=== PATIENT | male | born 1995 | race Caucasian/White ===

== ENCOUNTER 2017-08-06 08:34 | Emergency (ER) | payer MEDICAID, OTHER ==
[2017-08-06 08:44] VITALS: BP 140/75
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
--- NOTE | 2017-08-06 09:47 | XRAY Preliminary Report ---
Exam: XR Wrist 4 View RT IMPRESSION: No fracture or dislocation [facility] SITE ID: [id number]
--- NOTE | 2017-08-06 09:50 | XRAY Report ---
EXAM: RIGHT WRIST RADIOGRAPHY EXAM DATE: 08/06/2017 09:17 AM. CLINICAL HISTORY: Injury fall. COMPARISON: None. TECHNIQUE: 4 views. FINDINGS: Bones: Normal. No fractures or bone lesions. Joints: Normal. No subluxations. Soft Tissues: Normal. No soft tissue swelling. IMPRESSION: No fracture or dislocation [facility] Referring Provider Line: [phone] SITE ID: [id number]
== END 2017-08-06 10:00 | disposition home or self-care (01) ==
LOC: ED 08:34
DX: S63.501A Unspecified sprain of right wrist, initial encounter (principal); S60.512A Abrasion of left hand, initial encounter; V18.4XXA Pedal cycle driver injured in noncollision transport accident in traffic accident, initial encounter; Y93.55 Activity, bike riding; Y92.488 Other paved roadways as the place of occurrence of the external cause; J45.909 Unspecified asthma, uncomplicated; K21.9 Gastro-esophageal reflux disease without esophagitis
CPT/HCPCS: 29125; 99283

== ENCOUNTER 2018-03-07 20:07 | Emergency (ER) | payer MEDICAID ==
[2018-03-07 20:11] VITALS: BP 143/83
[2018-03-07] MEDS ORDERED: IPRATROPIUM/ALBUTEROL 3 ML NEB INH STA (20:14)
[2018-03-07] MEDS ORDERED: predniSONE 20 MG TABLET PO STA (20:15)
--- NOTE | 2018-03-07 20:26 | ED Physician Documentation ---
PD HPI DYSPNEA - Stated complaint Stated Complaint: SOA - Chief complaint Chief Complaint: Resp - History obtained from History obtained from: Patient - History of Present Illness Timing - onset: Yesterday Timing - details: Gradual onset, Still present Inciting event(s): Out of meds, Exposure (ie smoke) Improved by: O2 Associated symptoms: Wheezing. No: Fever, Cough Similar symptoms before: Work up / diagnostics, Treatment Recently seen: Not recently seen - Additional information Additional information: Patient is a 22 year old male with a history of asthma presenting to the emergency department for shortness of breath. Patient states that he was mowing the grass yesterday and developed mild wheezing. Patient states that it got progressively worse and he did not have an inhaler so he came to the emergency department. Review of Systems Ten Systems: 10 systems reviewed and negative Constitutional: denies: Fever, Chills Respiratory: reports: Dyspnea, Cough, Wheezing Neurologic: reports: Headache PD PAST MEDICAL HISTORY - Past Medical History Past Medical History: Yes Respiratory: Asthma GI: GERD - Past Surgical History Past Surgical History: No - Present Medications Home Medications: Ambulatory Orders Medication Instructions Recorded Confirmed Albuterol Sulfate 1.25 mg IH PRN 09/09/13 09/09/13 Albuterol [Proventil Hfa] 1 puffs INH Q4-6H PRN 09/09/13 09/09/13 Omeprazole Magnesium [Prilosec Otc] 20 mg PO PRN 09/09/13 09/09/13 Ibuprofen [Motrin] 800 mg PO Q8H PRN #30 tablet 09/15/13 Albuterol Sulf [Ventolin Hfa 2 puffs INH Q4HR PRN #1 inhaler 03/07/18 Inhaler] predniSONE [Prednisone] 40 mg PO DAILY 5 Days tablet 03/07/18 - Allergies Allergies/Adverse Reactions: Allergies Allergy/AdvReac Type Severity Reaction Status Date / Time No Known Drug Allergies Allergy Verified 03/07/18 20:11 - Social History Does the pt smoke?: No Smoking Status: Never smoker Does the pt drink ETOH?: No Does the pt have substance abuse?: Yes - Immunizations Immunizations are current?: Yes - POLST Patient has POLST: No PD ED PE NORMAL - Vitals Vital signs reviewed: Yes - General General: Alert and oriented X 3 - HEENT HEENT: Atraumatic - Cardiac Cardiac: RRR - Abdomen Abdomen: Non distended - Derm Derm: Normal color, Warm and dry, No rash - Extremities Extremities: No deformity, No edema - Neuro Neuro: Alert and oriented X 3, No motor deficit, Normal speech - Psych Psych: Normal mood PD ED PE EXPANDED - Respiratory Respiratory: Labored, Wheezing, Right upper lobe, Right middle lobe, Right lower lobe, Left upper lobe, Left lower lobe Results - Vitals Vitals: Vital Signs - 24 hr 03/07/18 03/07/18 20:09 20:23 Temperature 36.6 C Heart Rate 97 88 Respiratory 16 20 Rate Blood Pressure 143/83 H O2 Saturation 97 Oxygen O2 Source Room air PD MEDICAL DECISION MAKING - ED course Complexity details: reviewed old records, reviewed results, re-evaluated patient , considered differential, d/w patient ED course: patient was seen and examined at bedside. Patient was treated with two duonebs and 60mg of prednisone. Patient responded well to the therapy. Patient stated that he felt much better and wanted to go home. Patient was educated on using a spacer. prescriptions were written and patient was stable for discharge with outpatient follow up. Departure - Departure Disposition: 01 Home, Self Care Clinical Impression: Asthma Condition: Good Instructions: Asthma Dc Follow-Up: primary,care provider [Other] - Within 3 Days Prescriptions: Albuterol Sulf [Ventolin Hfa Inhaler] 2 puffs INH Q4HR PRN #1 inhaler PRN Reason: Wheezing predniSONE [Prednisone] 40 mg PO DAILY 5 Days tablet Comments: Your symptoms today are being caused by an asthma exacerbation. You will be on steroids for the next 5 days, and you can use your inhaler up to every two hours as needed. You should return for worsening symptoms.
[2018-03-07] MEDS ORDERED: IPRATROPIUM/ALBUTEROL 3 ML NEB INH ONE (20:31)
== END 2018-03-07 20:46 | disposition home or self-care (01) ==
LOC: ED 20:07
DX: J45.909 Unspecified asthma, uncomplicated (principal); K21.9 Gastro-esophageal reflux disease without esophagitis
CPT/HCPCS: 94640; 94664; 99283; 99284; J7512

== ENCOUNTER 2018-03-12 05:26 | Emergency (ER) | payer MEDICAID ==
[2018-03-12] MEDS ORDERED: ALBUTEROL NEB 2.5 MG/3 ML INH STA (05:43)
[2018-03-12] MEDS ORDERED: CETIRIZINE 10 MG TABLET PO STA (05:43)
--- NOTE | 2018-03-12 05:57 | ED Physician Documentation ---
PD HPI URI - Stated complaint Stated Complaint: COUGH,THROAT PX - Chief complaint Chief Complaint: Heent - History obtained from History obtained from: Patient - History of Present Illness Timing details: Gradual onset Pain level max: 5 Pain level now: 4 Associated symptoms: Nasal congestion, Rhinorrhea, Sore throat, Dyspnea ( wheezing). No: Fever, Chills - Additional information Additional information: Patient is a 22-year-old male who presents to the emergency department what appears to be a viral upper respiratory infection. States he has been sick for the past 5-6 days. Start the sore throat again yesterday. Positive rhinorrhea and congestion. Has not taken anything for this. Is still on steroids and albuterol for his asthma. No fevers. Cough is productive of yellow/green sputum Review of Systems Constitutional: denies: Fever, Chills Ears: denies: Ear pain Nose: reports: Rhinorrhea / runny nose, Congestion Throat: reports: Sore throat Respiratory: reports: Wheezing GI: denies: Nausea, Vomiting, Diarrhea : denies: Dysuria, Frequency, Hesitancy Musculoskeletal: denies: Neck pain, Back pain Neurologic: denies: Headache PD PAST MEDICAL HISTORY - Past Medical History Past Medical History: Yes Respiratory: Asthma GI: GERD - Past Surgical History Past Surgical History: No - Present Medications Home Medications: Ambulatory Orders Medication Instructions Recorded Confirmed Albuterol Sulfate 1.25 mg IH PRN 09/09/13 09/09/13 Albuterol [Proventil Hfa] 1 puffs INH Q4-6H PRN 09/09/13 09/09/13 Omeprazole Magnesium [Prilosec Otc] 20 mg PO PRN 09/09/13 09/09/13 Ibuprofen [Motrin] 800 mg PO Q8H PRN #30 tablet 09/15/13 Albuterol Sulf [Ventolin Hfa 2 puffs INH Q4HR PRN #1 inhaler 03/07/18 Inhaler] predniSONE [Prednisone] 40 mg PO DAILY 5 Days tablet 03/07/18 Cetirizine HCl/Pseudoephedrine 1 each PO BID PRN #30 tab.er.12h 03/12/18 [Zyrtec-D Tablet] Ibuprofen [Motrin] 800 mg PO Q8H PRN #30 tablet 03/12/18 - Allergies Allergies/Adverse Reactions: Allergies Allergy/AdvReac Type Severity Reaction Status Date / Time No Known Drug Allergies Allergy Verified 03/12/18 05:34 - Social History Does the pt smoke?: No Smoking Status: Never smoker Does the pt drink ETOH?: No Does the pt have substance abuse?: Yes - Immunizations Immunizations are current?: Yes - POLST Patient has POLST: No PD ED PE NORMAL - Vitals Vital signs reviewed: Yes - General General: Alert and oriented X 3, No acute distress - HEENT HEENT: Ears normal, Moist mucous membranes, Other (Mild posterior oropharyngeal erythema without tonsillar exudates. Uvula midline. Posterior cobblestoning present) - Neck Neck: Supple, no meningeal sign, No adenopathy - Cardiac Cardiac: RRR - Respiratory Respiratory: No respiratory distress, Clear bilaterally - Abdomen Abdomen: Soft, Non tender, Non distended - Derm Derm: Warm and dry - Neuro Neuro: Alert and oriented X 3 - Psych Psych: Normal mood, Normal affect Results - Vitals Vitals: Vital Signs - 24 hr 03/12/18 03/12/18 05:30 05:58 Temperature 36.6 C Heart Rate 67 68 Respiratory 18 18 Rate Blood Pressure 156/98 H O2 Saturation 98 Oxygen O2 Source Room air - Labs Labs: Laboratory Tests 03/12/18 05:40 Group A Strep Rapid Negative PD MEDICAL DECISION MAKING - ED course Complexity details: reviewed old records, reviewed results, re-evaluated patient , considered differential, d/w patient ED course: Patient is a 22-year-old male who presents to the emergency department with what appears to be a viral upper respiratory infection. Will place on decongestants in addition to his albuterol inhaler and steroids. We will have him continue the steroids. Given a nebulizer treatment here and breathing improved. Patient is well-appearing, nontoxic. No hypoxia. Tolerating p.o. without difficulty. Well-hydrated. Patient counseled regarding signs and symptoms for which I believe and urgent re-evaluation would be necessary. Patient with good understanding of and agreement to plan and is comfortable going home at this time This document was made in part using voice recognition software. While efforts are made to proofread this document, sound alike and grammatical errors may occur. Departure - Departure Disposition: 01 Home, Self Care Clinical Impression: Viral URI, Viral pharyngitis Condition: Good Instructions: ED Pharyngitis Viral, ED Viral Syndrome Follow-Up: your,doctor in 1 week if not better [Other] Prescriptions: Cetirizine HCl/Pseudoephedrine [Zyrtec-D Tablet] 1 each PO BID PRN #30 tab.er.12h PRN Reason: Nasal Congestion Ibuprofen [Motrin] 800 mg PO Q8H PRN #30 tablet PRN Reason: PAIN &/OR FEVER Comments: Return if you worsen. Drink plenty of fluids. Your rapid strep is negative today. Continue your other medications as previously prescribed
[2018-03-12 06:20] VITALS: BP 138/84
== END 2018-03-12 06:15 | disposition home or self-care (01) ==
LOC: ED 05:26
DX: J02.8 Acute pharyngitis due to other specified organisms (principal); J06.9 Acute upper respiratory infection, unspecified; B97.89 Other viral agents as the cause of diseases classified elsewhere
CPT/HCPCS: 87070; 87430; 94640; 99283; A9270

== ENCOUNTER 2018-04-04 02:04 | Emergency (ER) | payer MEDICAID ==
[2018-04-04] MEDS ORDERED: IPRATROPIUM/ALBUTEROL 3 ML NEB INH STA (02:15)
[2018-04-04] MEDS ORDERED: ALBUTEROL NEB 2.5 MG/3 ML INH ONE (02:33)
[2018-04-04] MEDS ORDERED: ALBUTEROL NEB 2.5 MG/3 ML INH STA (02:38)
[2018-04-04] MEDS ORDERED: predniSONE 20 MG TABLET PO STA (02:38)
--- NOTE | 2018-04-04 02:41 | ED Physician Documentation ---
PD HPI DYSPNEA - Stated complaint Stated Complaint: SHORTNESS OF BREATH - Chief complaint Chief Complaint: Resp - History obtained from History obtained from: Patient - History of Present Illness Timing - onset: Today Timing - details: Gradual onset, Still present Inciting event(s): Out of meds, Exposure (ie smoke) Worsened by: Exertion, Coughing, Allergens Similar symptoms before: Work up / diagnostics, Treatment Recently seen: Emergency Dept - Additional information Additional information: Patient is a 22 year old male with a history of asthma, non compliant with medications who is presenting to the emergency department for shortness of breath. Patient states that he was pulling a car out of a bunch of weeds and trees and it gave him shortness of breath. patient does not have an inhaler at this time so he came to the emergency department. Review of Systems Constitutional: denies: Fever Respiratory: reports: Dyspnea, Cough, Wheezing PD PAST MEDICAL HISTORY - Past Medical History Past Medical History: Yes Respiratory: Asthma GI: GERD - Past Surgical History Past Surgical History: No - Present Medications Home Medications: Ambulatory Orders Medication Instructions Recorded Confirmed Albuterol Sulfate 1.25 mg IH PRN 09/09/13 09/09/13 Albuterol [Proventil Hfa] 1 puffs INH Q4-6H PRN 09/09/13 09/09/13 Omeprazole Magnesium [Prilosec Otc] 20 mg PO PRN 09/09/13 09/09/13 Ibuprofen [Motrin] 800 mg PO Q8H PRN #30 tablet 09/15/13 Albuterol Sulf [Ventolin Hfa 2 puffs INH Q4HR PRN #1 inhaler 03/07/18 Inhaler] predniSONE [Prednisone] 40 mg PO DAILY 5 Days tablet 03/07/18 Cetirizine HCl/Pseudoephedrine 1 each PO BID PRN #30 tab.er.12h 03/12/18 [Zyrtec-D Tablet] Ibuprofen [Motrin] 800 mg PO Q8H PRN #30 tablet 03/12/18 Albuterol Sulfate [Proventil Hfa 1 - 2 puffs INH Q4H PRN #1 inhaler 04/04/18 Inhaler] Cetirizine HCl 10 mg PO DAILY #20 tablet 04/04/18 predniSONE [Prednisone] 40 mg PO DAILY 5 Days tablet 04/04/18 - Allergies Allergies/Adverse Reactions: Allergies Allergy/AdvReac Type Severity Reaction Status Date / Time No Known Drug Allergies Allergy Verified 03/12/18 05:34 - Social History Does the pt smoke?: No Smoking Status: Never smoker Does the pt drink ETOH?: No Does the pt have substance abuse?: Yes - Immunizations Immunizations are current?: Yes - POLST Patient has POLST: No PD ED PE NORMAL - Vitals Vital signs reviewed: Yes - General General: Alert and oriented X 3 - HEENT HEENT: Atraumatic - Cardiac Cardiac: RRR - Abdomen Abdomen: Soft - Derm Derm: Normal color - Extremities Extremities: No deformity - Neuro Neuro: Alert and oriented X 3 Eye Opening: Spontaneous PD ED PE EXPANDED - Respiratory Respiratory: Labored, Accessory mm use, Retractions, Wheezing, Right upper lobe , Right middle lobe, Right lower lobe, Left upper lobe, Left lower lobe Results - Vitals Vitals: Vital Signs - 24 hr 04/04/18 04/04/18 04/04/18 02:05 02:27 02:57 Temperature 36.0 C L Heart Rate 112 H 113 H 110 H Respiratory 21 20 16 Rate Blood Pressure 142/98 H 125/92 H O2 Saturation 94 96 Oxygen O2 Source Room air PD MEDICAL DECISION MAKING - ED course Complexity details: reviewed old records, reviewed results, re-evaluated patient , considered differential, d/w patient ED course: Patient was seen and examined at bedside. patient was treated with prednisone, duo nebs and two albuterol treatments. Patient responded well to the therapy and his lungs opened up. Patient would have benefited from further treatments but he said that he had to go home, he had a new baby that he had to help take care of. patient was given detailed discharge and follow up instructions and was stable for discharge with outpatient follow up. Departure - Departure Disposition: Home, Self Care Clinical Impression: Asthma Condition: Good Instructions: Asthma Dc Follow-Up: primary,care provider [Other] Prescriptions: Albuterol Sulfate [Proventil Hfa Inhaler] 1 - 2 puffs INH Q4H PRN #1 inhaler PRN Reason: Shortness Of Air/Wheezing Cetirizine HCl 10 mg PO DAILY #20 tablet predniSONE [Prednisone] 40 mg PO DAILY 5 Days tablet Comments: Your symptoms today are being caused by an asthma exacerbation. You will be on steroids for the next 5 days. It is important that you fill your inhaler prescriptions and take a daily allergy medication. Try to avoid triggers ( grasses, pollen, dust). You may return to the emergency department at any time for new, worsening or uncontrollable symptoms. Discharge Date/Time: 04/04/18 03:08
[2018-04-04 02:59] VITALS: BP 125/92
== END 2018-04-04 03:08 | disposition home or self-care (01) ==
LOC: ED 02:04
DX: J45.909 Unspecified asthma, uncomplicated (principal)
CPT/HCPCS: 94640; 99283; J7512

== ENCOUNTER 2018-04-22 18:24 | Emergency (ER) | payer MEDICAID ==
[2018-04-22 18:36] VITALS: BP 146/94
--- NOTE | 2018-04-22 20:10 | ED Physician Documentation ---
PD HPI DYSPNEA - Stated complaint Stated Complaint: SOA/WHEEZING - Chief complaint Chief Complaint: Resp - History obtained from History obtained from: Patient - History of Present Illness Timing - onset: How many days ago (4) Timing - details: Gradual onset, Still present Inciting event(s): Out of meds Improved by: O2, Inhaler/neb Recently seen: Emergency Dept - Additional information Additional information: Patient is a 22 year old male with a history of ashtma who is presenting to the emergency department for a new inhaler. patient has not been able to see his doctor and he is going out of town so he needs a new prescription. Patient denies any fever or chills. Review of Systems Ten Systems: 10 systems reviewed and negative Constitutional: denies: Fever, Chills Respiratory: reports: Cough, Wheezing PD PAST MEDICAL HISTORY - Past Medical History Past Medical History: No Cardiovascular: None Respiratory: Asthma Neuro: Migraines Endocrine/Autoimmune: None GI: GERD : None HEENT: None Psych: None Musculoskeletal: None Derm: None - Past Surgical History Past Surgical History: No HEENT: Tonsil/Adenoidectomy - Present Medications Home Medications: Ambulatory Orders Medication Instructions Recorded Confirmed Albuterol Sulfate 1.25 mg IH PRN 09/09/13 09/09/13 Albuterol [Proventil Hfa] 1 puffs INH Q4-6H PRN 09/09/13 09/09/13 Omeprazole Magnesium [Prilosec Otc] 20 mg PO PRN 09/09/13 09/09/13 Ibuprofen [Motrin] 800 mg PO Q8H PRN #30 tablet 09/15/13 Albuterol Sulf [Ventolin Hfa 2 puffs INH Q4HR PRN #1 inhaler 03/07/18 Inhaler] predniSONE [Prednisone] 40 mg PO DAILY 5 Days tablet 03/07/18 Cetirizine HCl/Pseudoephedrine 1 each PO BID PRN #30 tab.er.12h 03/12/18 [Zyrtec-D Tablet] Ibuprofen [Motrin] 800 mg PO Q8H PRN #30 tablet 03/12/18 Albuterol Sulfate [Proventil Hfa 1 - 2 puffs INH Q4H PRN #1 inhaler 04/04/18 Inhaler] Cetirizine HCl 10 mg PO DAILY #20 tablet 04/04/18 predniSONE [Prednisone] 40 mg PO DAILY 5 Days tablet 04/04/18 Albuterol 2.5 mg INH Q4H PRN #30 neb 04/22/18 Albuterol Sulfate [Proventil Hfa 1 - 2 puffs INH Q4H PRN #1 inhaler 04/22/18 Inhaler] Ipratropium/Albuterol [Duoneb] 3 ml INH Q6H #30 neb 04/22/18 - Allergies Allergies/Adverse Reactions: Allergies Allergy/AdvReac Type Severity Reaction Status Date / Time No Known Drug Allergies Allergy Verified 04/22/18 18:36 - Social History Does the pt smoke?: Yes Smoking Status: Former smoker Does the pt drink ETOH?: Yes Does the pt have substance abuse?: Yes Substance Use and Type: Marijuana - Immunizations Immunizations are current?: Yes - POLST Patient has POLST: No PD ED PE NORMAL - Vitals Vital signs reviewed: Yes - General General: Alert and oriented X 3, No acute distress - HEENT HEENT: Atraumatic - Neck Neck: Supple, no meningeal sign - Cardiac Cardiac: RRR - Derm Derm: Normal color - Extremities Extremities: No deformity - Neuro Neuro: Alert and oriented X 3, No motor deficit, Normal speech Eye Opening: Spontaneous Motor: Obeys Commands Verbal: Oriented GCS Score: 15 PD ED PE EXPANDED - Respiratory Respiratory: Wheezing, Right upper lobe, Left upper lobe. No: Labored, Accessory mm use Results - Vitals Vitals: Vital Signs - 24 hr 04/22/18 18:33 Temperature 36.2 C L Heart Rate 65 Respiratory 20 Rate Blood Pressure 146/94 H O2 Saturation 95 Oxygen O2 Source Room air PD MEDICAL DECISION MAKING - ED course Complexity details: reviewed old records, reviewed results, re-evaluated patient , considered differential, d/w patient ED course: Patient was seen and examined at bedside. Patient did have active wheezing bilaterally but he did not want to wait for a breathing treatment. Prescriptions were written and patient was stable for discharge [facility] outpatient follow up. - Sepsis Event Vital Signs: Vital Signs - 24 hr 04/22/18 18:33 Temperature 36.2 C L Heart Rate 65 Respiratory 20 Rate Blood Pressure 146/94 H O2 Saturation 95 Oxygen O2 Source Room air Departure - Departure Disposition: 01 Home, Self Care Clinical Impression: Asthma Condition: Good Instructions: Asthma Dc, Inhaler Metered Dose Dc Follow-Up: primary,care provider [Other] - Within 3 Days Prescriptions: Albuterol 2.5 mg INH Q4H PRN #30 neb PRN Reason: Wheezing Albuterol Sulfate [Proventil Hfa Inhaler] 1 - 2 puffs INH Q4H PRN #1 inhaler PRN Reason: Shortness Of Air/Wheezing Ipratropium/Albuterol [Duoneb] 3 ml INH Q6H #30 neb Comments: Your symptoms today are being caused by an asthma exacerbation. It is really important that you stay on top of it and avoid triggers. You should follow up with your doctor for further evaluation. You may return to the emergency department at any time for new, worsening or uncontrollable symptoms. Discharge Date/Time: 04/22/18 20:17
== END 2018-04-22 20:17 | disposition home or self-care (01) ==
LOC: ED 18:24
DX: J45.901 Unspecified asthma with (acute) exacerbation (principal); K21.9 Gastro-esophageal reflux disease without esophagitis; Z87.891 Personal history of nicotine dependence
CPT/HCPCS: 99283

== ENCOUNTER 2020-05-20 14:23 | Emergency (ER) | payer SELFPAY ==
[2020-05-20] MEDS ORDERED: BUFFERED LIDOCAINE 10 ML SYRINGE SUBQ STA (14:59)
--- NOTE | 2020-05-20 15:01 | ED Physician Documentation ---
PD HPI UPPER EXT INJURY - Stated complaint Stated Complaint: LT HAND LAC - Chief complaint Chief Complaint: Laceration - History obtained from History obtained from: Patient - History of Present Illness Location: Left, Hand Type of injury: Laceration Where injury occurred: Home Timing - onset: Today Timing - duration: Minutes Timing - details: Abrupt onset, Still present Improved by: Rest, Immobilization Worsened by: Moving, Palpating Associated symptoms: No: Weakness, Numbness, Tingling, Swelling Contributing factors: No: Anticoagulated Similar symptoms before: Diagnosis (laceration) Recently seen: Not recently seen - Additonal information Additional information: 24-year-old male was using a Skill saw holding the piece of wood and the wood kicked back. He has lacerated the top of his left hand. He had significant amount of bleeding with blood squirting all over the place and he has been able to control with direct pressure only. He did tighten up his watch hard enough to cut the blood circulation off to his hand. He has now removed the watch. The wound has bled profusely and he is now been able to control it with direct pressure. Review of Systems Constitutional: denies: Fever Ears: denies: Ear pain Nose: denies: Congestion Throat: denies: Sore throat Respiratory: denies: Dyspnea, Cough GI: denies: Vomiting PD PAST MEDICAL HISTORY - Past Medical History Past Medical History: Yes Cardiovascular: None Respiratory: Asthma Neuro: Migraines Endocrine/Autoimmune: None GI: GERD : None HEENT: None Psych: None Musculoskeletal: None Derm: None - Past Surgical History Past Surgical History: No HEENT: Tonsil/Adenoidectomy - Present Medications Home Medications: Ambulatory Orders Medication Instructions Recorded Confirmed Albuterol Sulfate 1.25 mg IH PRN 09/09/13 09/09/13 Albuterol [Proventil Hfa] 1 puffs INH Q4-6H PRN 09/09/13 09/09/13 Omeprazole Magnesium [Prilosec Otc] 20 mg PO PRN 09/09/13 09/09/13 Ibuprofen [Motrin] 800 mg PO Q8H PRN #30 tablet 09/15/13 Albuterol Sulf [Ventolin Hfa 2 puffs INH Q4HR PRN #1 inhaler 03/07/18 Inhaler] predniSONE [Prednisone] 40 mg PO DAILY 5 Days tablet 03/07/18 Cetirizine HCl/Pseudoephedrine 1 each PO BID PRN #30 tab.er.12h 03/12/18 [Zyrtec-D Tablet] Ibuprofen [Motrin] 800 mg PO Q8H PRN #30 tablet 03/12/18 Albuterol Sulfate [Proventil Hfa 1 - 2 puffs INH Q4H PRN #1 inhaler 04/04/18 Inhaler] Cetirizine HCl 10 mg PO DAILY #20 tablet 04/04/18 predniSONE [Prednisone] 40 mg PO DAILY 5 Days tablet 04/04/18 Albuterol 2.5 mg INH Q4H PRN #30 neb 04/22/18 Albuterol Sulfate [Proventil Hfa 1 - 2 puffs INH Q4H PRN #1 inhaler 04/22/18 Inhaler] Ipratropium/Albuterol [Duoneb] 3 ml INH Q6H #30 neb 04/22/18 - Allergies Allergies/Adverse Reactions: Allergies Allergy/AdvReac Type Severity Reaction Status Date / Time No Known Drug Allergies Allergy Verified 04/22/18 18:36 - Social History Does the pt smoke?: Yes Smoking Status: Current every day smoker Does the pt drink ETOH?: Yes Does the pt have substance abuse?: Yes - Immunizations Immunizations are current?: Yes - POLST Patient has POLST: No PD ED PE NORMAL - Vitals Vital signs reviewed: Yes (tachy and hypertensive ) - General General: Alert and oriented X 3, No acute distress, Well developed/nourished - HEENT HEENT: Atraumatic, PERRL, EOMI - Respiratory Respiratory: No respiratory distress - Derm Derm: Normal color, Warm and dry, No rash - Extremities Extremities: Other (There is a large flap laceration to the dorsum of the left hand about 5-6 cm in size. There is a vessle which is now spasmed and appears to be the site of excessive blood loss. ) - Neuro Neuro: Alert and oriented X 3, gang worker 2-12 intact, No motor deficit, No sensory deficit, Normal speech Eye Opening: Spontaneous Motor: Obeys Commands Verbal: Oriented GCS Score: 15 - Psych Psych: Normal mood, Normal affect Results - Vitals Vitals: Vital Signs - 24 hr 05/20/20 05/20/20 14:31 14:34 Temperature 36.8 C 36.8 C Heart Rate 103 H 103 H Respiratory 16 16 Rate Blood Pressure 133/63 H 133/63 H O2 Saturation 96 96 Oxygen O2 Source Room air Procedures - Laceration (location) left hand Wound type: Stellate, Irregular, Flap, Into subcut fat, Clean. No: Into muscle Neurovascular status: Sensory intact, Motor intact, Vascular intact Tendon involvement: Tendon intact Anesthesia: Lidocaine 1%, With bicarb Wound Preparation: Hibiclens, Irrigated copiously NS, Wound explored, To the base Skin layer closure: Nylon, Dermabond, Interrupted, Size #-0 - enter number (4- 0), Sutures - enter # (14) Other: Patient tolerated well, No complications, Neurovascular intact, Dressing applied, Tetanus booster given Complexity: Simple PD MEDICAL DECISION MAKING - ED course Complexity details: reviewed results, re-evaluated patient, considered differential, d/w patient ED course: 44-year-old male with a large flap laceration to the back of his left hand has some macerated tissue and the flap does appear to culvert cover the entire defect. The wound is sutured and a portion of the wound is closed with Dermabond. Departure - Departure Disposition: 01 Home, Self Care Clinical Impression: Laceration of left hand Qualifiers: Encounter type: initial encounter Foreign body presence: without foreign body Qualified Code(s): S61.412A - Laceration without foreign body of left hand, initial encounter Condition: Stable Instructions: ED Laceration Hand, ED Laceration Ext Skin Glue Follow-Up: [facility] [Provider Group] Comments: sutures should be removed in 7-10 days
[2020-05-20] MEDS ORDERED: TETANUS/DIPHTHERIA/PERTUSSIS 0.5 ML SYRINGE IM ONE (15:43)
[2020-05-20 15:55] VITALS: BP 130/60
== END 2020-05-20 15:54 | disposition home or self-care (01) ==
LOC: ED 14:23
DX: S61.412A Laceration without foreign body of left hand, initial encounter (principal); W20.8XXA Other cause of strike by thrown, projected or falling object, initial encounter; Y93.89 Activity, other specified; Y92.009 Unspecified place in unspecified non-institutional (private) residence as the place of occurrence of the external cause; F17.200 Nicotine dependence, unspecified, uncomplicated
CPT/HCPCS: 12002; 90471; 99283; 99284